=== PATIENT | female | born 1945 | race Caucasian/White ===

== ENCOUNTER 2017-01-24 14:44 | Observation (INO) | payer MEDICARE, OTHER ==
[2017-01-24 15:26] LABS: Hematocrit 36.1 % (37.0-47.0); Hemoglobin 12.4 gm/dL (12.5-16.0); Mean Cell Volume 90.7 fl (78-100); Mean Corpuscular Hemoglobin 31.2 pg (27-31); Mean Corpuscular Hgb Conc 34.3 g/dl (32-36); Mean Platelet Volume 9.8 fl (6.0-9.5); Neutrophil # 5.2 K/mm3 (1.3-6.0); Neutrophil % 67.8 % (42-75.0); Platelet Count 273 K/mm3 (150-450); Red Blood Count 3.98 M/mm3 (4.2-5.4); Red Cell Distribution Width 12.4 % (11.5-14.0); White Blood Count 7.6 K/mm3 (4.0-10.5)
[2017-01-24 15:40] LABS: Prothrombin Time (Patient) 9.9 Seconds (9.0-11.0)
[2017-01-24 15:42] LABS: INR 0.99 INR (0.90-1.10)
[2017-01-24] MEDS ORDERED: LORazepam 2 MG/ML DISP.SYRIN IV ONE (16:31)
[2017-01-24] MEDS ORDERED: ONDANSETRON HCL/PF 2 MG/ML VIAL IV ONE (16:31)
[2017-01-24] MEDS ORDERED: ONDANSETRON HCL/PF 2 MG/ML VIAL ONE (16:32)
[2017-01-24] MEDS ORDERED: LORazepam 2 MG/ML DISP.SYRIN ONE (16:32)
[2017-01-24] MEDS ORDERED: MORPHINE SULFATE 4 MG/ML SYRG IV ONE (17:00)
[2017-01-24] MEDS ORDERED: MORPHINE SULFATE 4 MG/ML SYRG ONE (17:05)
[2017-01-24] MEDS ORDERED: NORMAL SALINE 1,000 ML IV ONE (17:10)
--- NOTE | 2017-01-24 17:18 | ERNOTE ---
Lower Extremity HPI - Narrative Date of Service: 01/24/17 - General Lower Extremities Pain: thigh: right Time Seen by Provider: 01/24/17 14:59 Source: patient Exam Limitations: no limitations - Immun/Allergies/Home Medications Allergies/Adverse Reactions: Allergies Allergy/AdvReac Type Severity Reaction Status Date / Time No Known Allergies Allergy Unverified 01/24/17 14:56 Home Medications: HOME MEDICATIONS ALPRAZolam [Xanax] 0.5 tab PO Q8H 01/24/17 [Last Taken Unknown] Ascorbic Acid [Vitamin C] 1,000 mg PO DAILY 01/24/17 [Last Taken Unknown] Calcium Carbonate [Calcium] 500 mg PO DAILY 01/24/17 [Last Taken Unknown] Cholecalciferol (Vitamin D3) [Vitamin D] 2,000 unit PO DAILY 01/24/17 [Last Taken Unknown] Escitalopram Oxalate [Lexapro] 5 mg PO DAILY 01/24/17 [Last Taken Unknown] Multivitamin [One Daily Multivitamin] 1 each PO DAILY 01/24/17 [Last Taken Unknown] - History of Present Illness Narrative: Patient presents to the ED for a right thigh injury. She tripped down the basement staires and had a direct blow to the right thigh with a container she was carrying. No acute N/T/W. not on blood thinners. has not seen anyone else for this. Pain can be severe. Right thigh. No other injuries. No head injury. no neck or back pain. Pain worse with movement. Occurred: just prior to arrival Location of Incident: home Method of Injury: Reports: fell, direct blow Reason for Fall: Reports: tripped Loss of Consciousness: Reports: no loss of consciousness Modifying Factors - (Improves): Reports: rest Modifying Factors - (Worsens): Reports: movement Associated Symptoms: Denies: weakness, chest pain Other Injuries: Reports: none Subsequent Symptoms: Denies: sensory loss, numbness, motor loss Prior Treament: Denies: recently seen Review of Systems - Review of Systems Constitutional: Absent: fever Respiratory: Absent: shortness of breath Cardiology: Absent: chest pain Gastrointestinal/Abdominal: Present: nausea. Absent: abdominal pain Genitourinary: Absent: dysuria All Other Systems: All systems neg except as marked - Patient's Past Medical History Patient History - Medical: Depression Patient History - Cardiac/Respiratory: No pertinent hx Patient History - Cancer: No Hx of Cancer Patient History - Other: None - Social History Living Situations: home Abuse History: No History of abuse Psych History: Hx of Anxiety, Hx of Depression Alcohol Use: none Drug Use: none Physical Exam - Physical Exam General Appearance: Present: alert, anxious Head Exam: Present: normal inspection, no evidence of injury Eye Exam: Normal inspection: bilateral, PERRL: bilateral Ears, Nose, Throat: Present: normal ENT inspection Neck: Present: normal inspection, nontender. Absent: tender posterior midline Respiratory: Present: no respiratory distress, normal breath sounds, no accessory muscle use, lungs clear Cardiovascular/Chest: Present: regular rate, rhythm, normal peripheral pulses Gastrointestinal/Abdominal: Present: normal bowel sounds, nontender, nondistended, soft Back Exam: Present: no vertebral tenderness Extremity Exam: Present: other - swelling and bruising medial right thigh with skin color changes. The right thigh is 44.5cm, left thigh 38.5cm. The whole anterior compartemtn is swollen. There is a tight compartment medially but even the lateral anterior compartment is more firn than the left anterior thigh. Strong DP pulses. Neurological Exam: Present: alert, no motor/sensory deficits, other - anxious Skin Exam: Present: normal color, warm/dry, other - no laceration ED Progress - Results and Orders Patient's Lab Results:: I have reviewed the patient's lab results. - Vital Signs Patient's Vital Signs:: I have reviewed the patient's vital signs. Vital Signs: Vital Signs 01/24/17 01/24/17 01/24/17 14:50 16:00 16:35 Temperature 36.3 C L 36.4 C L Pulse Rate 86 74 90 Respiratory 12 14 16 Rate Blood Pressure 102/63 118/80 124/70 O2 Sat by Pulse 96 97 97 Oximetry - X-Ray X-Ray #1 X-Ray: femur Interpretation: Interp. by me X-ray Comments: I reviewed official radiology report - Progress/Reassessment Chief Complaint: Lower Extremity Pain/ Injury Progress Note-Subjective: 01/24/17 17:15 I spoke with Giovany Estrada from [facility]. He saw the patient in the ED and felt that the patient required compartment pressure measurement. By report however there is no [place] needle in the hospital for compartment pressure management. Given this Orthopedics recommends transfer to another facility from the ER. patient did have increased pain and vomited. I did provide IV fluids and anxiolysis. Clinically still good pulses and no neuro/vascular deficits. Unfortunately she cannot undergo the recommended diagnostic procedure here so Orthopedics recommends transfer. i spoke with Dr Ross and Dr Lee at [facility] and the patient can be transferred there for compartment pressure measurement. pt agreeable. Departure Clinical Impression: Fall, Thigh hematoma - Departure Disposition: [facility] Condition: Stable Referrals: Mckenna Larose MD [Primary Care Provider] -
--- NOTE | 2017-01-24 22:00 | HP ---
Chief Complaint - Chief Complaint Date of Service: 01/24/17 Time of Service: 21:57 Chief Complaint: " Fall, Swelling on RT thigh". Source of HPI- Pt; reliable, ERP notes. History of Present Illness: Ms. Liriano is a 71yr-old WF pt of Dr. Mckenna Larose with no pertinent medical history. Pt states that she missed a step going down the basement stairs and she tripped on the barrel she was carrying. The object had a direct blow to her RT inner thigh. She had severe pain, increasing swelling and bruising. By the time she arrived to the ED, the swelling had gotten much worse and the area felt hardened.There was no loss of consciousness with the fall and she denies her head hitting any surface or objects. At the ED, the Femur X-ray did not show any fractures. Due to the significance of swelling and location, ERP was concerned about compartment syndrome. Ortho was consulted and PA on-call recommended compartment syndrome measurement. However, it was determined that the apparatus needed to do so is not available at this facility. Arrangements were made for pt to be transferred to the [facility]. It appears that the case was discussed with our Surgeon- Dr. Guzman,who felt that Compartment Syndrome was highly unlikely given the circumstance of the injury. Decision was made to admit pt under observation due to likelihood of shanks- Amanda Injury and she will be evaluated by surgery tomorrow. - Patient's Past Medical History Patient History - Medical: Depression Patient History - Cardiac/Respiratory: No pertinent hx Patient History - Cancer: No Hx of Cancer Patient History - Surgical Procedures: No surgical history Patient History - Other: None - Family History Mother Family History - Medical: Family History - Cardiac/Respiratory: CVA/Stroke Family History - Cancer: No pertinent family hx Sister Family History - Medical: No pertinent hx Family History - Cardiac/Respiratory: No pertinent hx Family History - Cancer: Breast Father Family History - Medical: , No pertinent hx Family History - Cardiac/Respiratory: No pertinent hx Family History - Cancer: No pertinent family hx - Social History Living Situations: alone Abuse History: No History of abuse Psych History: Hx of Anxiety, Hx of Depression Smoking Status: Never smoker Have you smoked in the past 12 months: No Do you dip or chew tobacco: No Alcohol Use: none Drug Use: none Review Of Systems (GEN) - Review of Systems Generalized/Overall Review: Absent: Weakness, Chills, Fever, Malaise EENTM: Absent: Eye Pain, Blurred Vision, Tearing Respiratory: Absent: Cough, Shortness of Breath, Orthopnea Cardiac: Absent: Chest Pain, Edema, Palpitations Abdominal: Absent: Nausea, Vomiting, Hematemesis Genitourinary: Absent: Burning, Itching, Urgency Musculoskeletal: Present: Joint Pain, Joint Swelling - RT thigh. Absent: Back Pain Neurological: Absent: Headache, Depressed, Tremors, Weakness Skin: Absent: Dryness, Lesions, Lumps Endocrine: Absent: Intolerance to Cold, Flushing, Increased Thirst Misc: All systems neg except as marked Allergies/Adverse Reactions: Allergies Allergy/AdvReac Type Severity Reaction Status Date / Time No Known Allergies Allergy Unverified 01/24/17 14:56 Home Medications: HOME MEDICATIONS ALPRAZolam [Xanax] 0.5 tab PO Q8H 01/24/17 [Last Taken Unknown] Ascorbic Acid [Vitamin C] 1,000 mg PO DAILY 01/24/17 [Last Taken Unknown] Calcium Carbonate [Calcium] 500 mg PO DAILY 01/24/17 [Last Taken Unknown] Cholecalciferol (Vitamin D3) [Vitamin D] 2,000 unit PO DAILY 01/24/17 [Last Taken Unknown] Escitalopram Oxalate [Lexapro] 5 mg PO DAILY 01/24/17 [Last Taken Unknown] Multivitamin [One Daily Multivitamin] 1 each PO DAILY 01/24/17 [Last Taken Unknown] Exam - Exam Vital Signs: Vital Signs - Last Taken Temp 36.9 C 01/24/17 18:34 Pulse 63 01/24/17 18:34 Resp 16 01/24/17 18:34 BP 136/43 01/24/17 18:34 Pulse Ox 100 01/24/17 18:34 Constitutional: Present: Alert, Oriented x3, Cooperative, No distress ENT Exam: Present: normal ENT inspection Eye Exam: bilateral eye: normal inspection, PERRL Neck: Present: non-tender, full range of motion, supple Back Exam: Present: normal inspection, no CVA tenderness Respiratory: Present: chest non-tender, lungs clear, No rales, No wheezing Cardiovascular/Chest: Present: normal peripheral pulses, regular rate, rhythm, no chest tenderness Abdomen: Present: Normal bowel sounds, soft, nontender /Rectal: Present: Exam deferred Extremity: Present: normal range of motion, swelling - RT inner thigh with bruising. Skin Exam: Present: warm/dry, no cyanosis Lymphatic: Present: no adenopathy Neurologic: Present: alert, normal mood/affect, oriented x 3 Appearance: Present: appropriate appearance, appropriate insight Eye contact: Present: cooperative, good eye contact, normal speech Thoughts: Present: normal thought pattern, no apparent hallucination Diagnostic Studies: Laboratory Results WBC 7.6 K/mm3 (4.0-10.5) 01/24/17 15:25 RBC 3.98 M/mm3 (4.2-5.4) L 01/24/17 15:25 Hgb 12.4 gm/dL (12.5-16.0) L 01/24/17 15:25 Hct 36.1 % (37.0-47.0) L 01/24/17 15:25 MCV 90.7 fl (78-100) 01/24/17 15:25 MCH 31.2 pg (27-31) H 01/24/17 15:25 MCHC 34.3 g/dl (32-36) 01/24/17 15:25 RDW 12.4 % (11.5-14.0) 01/24/17 15:25 Plt Count 273 K/mm3 (150-450) 01/24/17 15:25 MPV 9.8 fl (6.0-9.5) H 01/24/17 15:25 Immature Gran % (Auto) 0.40 % (0.001-0.429) 01/24/17 15:25 Immature Gran # (Auto) 0.03 K/mm3 (0.000-0.0310) 01/24/17 15:25 Neutrophils % 67.8 % (42-75.0) 01/24/17 15:25 Lymphocytes % 23.2 % (20-51) 01/24/17 15:25 Monocytes % 8.0 % (0.0-9) 01/24/17 15:25 Eosinophils % 0.3 % (0.0-3.0) 01/24/17 15:25 Basophils % 0.3 % (0.0-1.0) 01/24/17 15:25 Nucleated RBC % 0.0 k/mm3 (0-1) 01/24/17 15:25 Neutrophils # 5.2 K/mm3 (1.3-6.0) 01/24/17 15:25 Lymphocytes # 1.8 k/mm3 (1.5-3.5) 01/24/17 15:25 Monocytes # 0.6 k/mm3 (0.0-1.0) 01/24/17 15:25 Eosinophils # 0.0 k/mm3 (0.0-0.7) 01/24/17 15:25 Absolute Basophils 0.0 k/mm3 (0.0-0.1) 01/24/17 15:25 PT 9.9 Seconds (9.0-11.0) 01/24/17 15:25 INR (Anticoag Therapy) 0.99 INR (0.90-1.10) 01/24/17 15:25 Assessment/Plan - Assessment/Plan (1) Thigh hematoma Assessment: As discussed in the HPI- Pt sustained a fall which caused soft tissues swelling with hematoma on RT inner thigh, however, there was no fracture. During physical examination, pt notes that the swelling has reduced since presentation to the ED. Compartment syndrome is unlikely at this time but pt will be observed for Shanks- Niyah injury and will be evaluated by the surgeon for now. Will provide supportive care with pain mgt Monitor CBC in am. Problem: Acute (2) Fall Problem: Acute
[2017-01-24] MEDS: ALPRAZolam 0.5 MG TABLET PO SCH (22:31)
[2017-01-24 22:34] LABS: Anion Gap 18.4 mmol/L (6.8-13.8); BUN/Creatinine Ratio 18.8 (9.0-21.6); Calcium * 9.5 mg/dL (7.9-10.9); Estimated Creat Clear 49.5; Potassium 3.4 mmol/L (3.4-4.6)
[2017-01-25 05:40] LABS: Hematocrit 32.1 % (37.0-47.0); Hemoglobin 10.6 gm/dL (12.5-16.0); Mean Cell Volume 93.6 fl (78-100); Mean Corpuscular Hemoglobin 30.9 pg (27-31); Mean Platelet Volume 10.1 fl (6.0-9.5); Neutrophil # 6.1 K/mm3 (1.3-6.0); Neutrophil % 68.9 % (42-75.0); Platelet Count 207 K/mm3 (150-450); Red Blood Count 3.43 M/mm3 (4.2-5.4); Red Cell Distribution Width 12.7 % (11.5-14.0); White Blood Count 8.9 K/mm3 (4.0-10.5)
[2017-01-25] MEDS: ALPRAZolam 0.5 MG TABLET PO SCH (05:50)
[2017-01-25] MEDS ORDERED: ESCITALOPRAM OXALATE 10 MG TAB PO SCH (09:00)
[2017-01-25] MEDS ORDERED: CALCIUM CARBONATE 500 MG TAB.CHEW PO SCH (09:00)
[2017-01-25] MEDS ORDERED: MULTIVITAMINS 1 CAP CAPSULE PO SCH (09:00)
[2017-01-25] MEDS ORDERED: CHOLECALCIFEROL 1,000 UNIT CAPSULE PO SCH (09:00)
[2017-01-25] MEDS ORDERED: ASCORBIC ACID 500 MG TABLET PO SCH (09:00)
[2017-01-25 10:39] VITALS: BP 120/54
--- NOTE | 2017-01-25 12:11 | CONS ---
[facility] - General Date of Service: 01/25/17 Narrative: Asked to see this pleasant 71 yo white female. She sustained a soft tissue injury to the right medial mid-thigh. She kicked a recycling bin into an object that rebounded and hit her in the thigh and then she fell on the bin in the same area. She was seen in the emergency room. There was no fracture. There was cause for concern for a compartment syndrome as she had developed a large tense and painful hematoma. Ortho consultation recommended a transfer. I was contacted and accepted the patient for admission through the hospitalist service for pain management and observation for a Kam-Amanda injury. Overnight she has had a significant diminution of the tenseness and is now virtually pain free. Source: patient, RN/MD, old records Exam Limitations: no limitations - History of Present Illness Allergies/Adverse Reactions: Allergies No Known Allergies Allergy (Unverified 01/24/17 14:56) Home Medications: Home Medications Medication Instructions Recorded Last Taken ALPRAZolam [Xanax] 0.5 tab PO Q8H 01/24/17 Unknown Ascorbic Acid [Vitamin C] 1,000 mg PO DAILY 01/24/17 Unknown Calcium Carbonate [Calcium] 500 mg PO DAILY 01/24/17 Unknown Cholecalciferol (Vitamin D3) 2,000 unit PO DAILY 01/24/17 Unknown [Vitamin D] Escitalopram Oxalate [Lexapro] 5 mg PO DAILY 01/24/17 Unknown Multivitamin [One Daily 1 each PO DAILY 01/24/17 Unknown Multivitamin] - Patient's Past Medical History Patient History - Medical: Depression Patient History - Cardiac/Respiratory: No pertinent hx Patient History - Cancer: No Hx of Cancer Patient History - Surgical Procedures: No surgical history Patient History - Other: None - Family History Mother Family History - Medical: Family History - Cardiac/Respiratory: CVA/Stroke Family History - Cancer: No pertinent family hx Sister Family History - Medical: No pertinent hx Family History - Cardiac/Respiratory: No pertinent hx Family History - Cancer: Breast Father Family History - Medical: , No pertinent hx Family History - Cardiac/Respiratory: No pertinent hx Family History - Cancer: No pertinent family hx - Social History Living Situations: alone Abuse History: No History of abuse Psych History: Hx of Anxiety, Hx of Depression Smoking Status: Never smoker Have you smoked in the past 12 months: No Do you dip or chew tobacco: No Alcohol Use: none Drug Use: none Procedures APPLICATION OF SPLINT (02/12/05) COLONOSCOPY (04/13/10) INT FIXATION-RADIUS/ULNA (02/13/05) Medications - Medications Current Medications: Current Medications Alprazolam (Xanax) 0.25 mg PO Q8H ANGELES Stop: 02/23/17 22:01 Last Admin: 01/25/17 05:50 Dose: 0.25 mg Ascorbic Acid (Vitamin C) 1,000 mg PO DAILY ANGELES Stop: 02/24/17 09:01 Last Admin: 01/25/17 08:25 Dose: 1,000 mg Calcium Carbonate/Glycine (Tums) 500 mg PO DAILY ANGELES Stop: 02/24/17 09:01 Last Admin: 01/25/17 08:26 Dose: Not Given Cholecalciferol (Vitamin D) 2,000 unit PO DAILY ANGELES Stop: 02/24/17 09:01 Last Admin: 01/25/17 08:25 Dose: 2,000 unit Escitalopram Oxalate (Lexapro) 5 mg PO DAILY ANGELES Stop: 02/24/17 09:01 Last Admin: 01/25/17 08:25 Dose: 5 mg Physical Examination - Exam Vital Signs: Vital Signs - Last Taken Temp 36.8 C 01/25/17 10:38 Pulse 67 01/25/17 10:38 Resp 20 01/25/17 10:38 BP 120/54 01/25/17 10:38 Pulse Ox 97 01/25/17 10:38 O2 Oxygen Delivery Method Room Air Constitutional: Present: Alert, Oriented x3, Cooperative, Well developed, Well nourished, No distress ENT Exam: Present: normal ENT inspection Neck: Present: full range of motion, supple, normal inspection Respiratory: Present: no respiratory distress, no accessory muscle use Peripheral Pulses: dorsalis-pedis (R): 3+ - Posterior tib 3+ Extremity: Present: other - 14x8 hematoma right medial mid-thigh with ecchymosis extending far beyond. Overlying skin is supple, is NOT tense, is NOT threatened. Non-tender to palpation. CMS intact distally. Capillary refill of right foot is normal. Neurologic: Present: no motor/sensory deficits Appearance: Present: appropriate appearance, appropriate insight, no memory impairment Eye contact: Present: cooperative, good eye contact, normal speech Thoughts: Present: normal thought pattern - Results and Findings: Lab/Microbiology results last 24 hrs: Abnormal/Pending Laboratory Last 24 HRS 01/25/17 05:34 RBC 3.43 L Hgb 10.6 L Hct 32.1 L MPV 10.1 H Lymphocytes % 18.7 L Monocytes % 11.0 H Neutrophils # 6.1 H - Assessments/Findings (1) Kam Amanda lesion Diagnosis(s): This Kam-Amanda injury is likely to resolve of its own accord without intervention. I have a low concern of this compromising the overlying skin. Will monitor this closely. She is good for discharge. I will have her follow-up with me on Friday in the office. Problem: Acute
[2017-01-25] MEDS ORDERED: POTASSIUM CHLORIDE 20 MEQ TABLET.SA PO ONE (12:36)
--- NOTE | 2017-01-25 12:40 | DS ---
(1) Thigh hematoma Diagnosis(s): RIGHT Problem: Acute (2) Fall Diagnosis(s): RT inner thigh with extensive eccchymosis. Problem: Acute (3) Anxiety and depression Problem: Chronic (4) Blood loss anemia Diagnosis(s): due to hematoma Problem: Acute Description of Stay: DATE OF ADMISSION: 01/24/17. DATE OF DISCHARGE: 01/25/17. DIAGNOSTICS: NONE. DISCHARGE SUMMARY: Kaylee Liriano is a 71-year-old WF with a history of anxiety and depression who fell down the basement stairs and a recycling bin hit her inner thigh. She had marked swelling, bruising and severe pain w/o LOC/head injury. X-ray of femur was negative. Differential diagnoses included Compartment syndrome/ Morelle Freddy injury/large hematoma. Instrument for measuring compartment syndrome not available at this facility. Orthopedic surgeon/general surgeon were contacted. There was a drop in H&H from 12.4/36.1[01/24/17] to 10.6/32.1[01/25/17] and the patient was hemodynamically stable w/o chest pain/SOB. Pain had significantly subsided the next day and the patient was able to ambulate to the bathroom etc. She felt she did not need any pain medication. Dr. Guzman was consulted for the same who felt she could go home and follow up on an outpatient basis on 01/27 or 01/29. Procedures Performed: none Results and Findings: Laboratory Tests 01/24/17 01/25/17 15:25 05:34 WBC 7.6 8.9 Hgb 12.4 L 10.6 L Hct 36.1 L 32.1 L Plt Count 273 207 01/24/17 15:25 Plasma Sodium 141 Potassium 3.4 D Chloride 102 Carbon Dioxide 23.0 L BUN 16 Creatinine 0.85 Est GFR (Non-Af Amer) 70 D Random Glucose 143 H Calcium 9.5 X-ray of femur: 01/24/2017: 1. Soft tissue swelling along the medial aspect of the mid thigh. DJD of the right hip and medial compartment of the right knee noted. No definable acute fracture. Discharge Disposition: Home self care Disposition: Home self-care Condition: Undetermined Discharge Activity: Activity as tolerated Discharge Diet: Low fat/chol, High Fiber Referrals: cMkenna Larose MD [Primary Care Provider] - Problem Oriented Discharge Instructions to Patient/Family: Fall Prevention in the Home, [id number], Contusion, [id number] Additional Patient Instructions (free text): Follow-up with Dr. Cordero on 01/27 or 01/29 . Follow up with PCP in 1 month. Fall precautions. [facility] will call you on Friday with follow up appointments. Complete Home Medications List: Complete Home Medication List: ALPRAZolam [Xanax] 0.5 tab PO Q8H 01/24/17 Ascorbic Acid [Vitamin C] 1,000 mg PO DAILY 01/24/17 Calcium Carbonate [Calcium] 500 mg PO DAILY 01/24/17 Cholecalciferol (Vitamin D3) [Vitamin D3] 2,000 unit PO DAILY 01/24/17 Escitalopram Oxalate [Lexapro] 5 mg PO DAILY 01/24/17 Multivitamin [One Daily Multivitamin] 1 each PO DAILY 01/24/17
== END 2017-01-25 13:27 | disposition home or self-care (01) ==
LOC: ER 14:44 → MS 18:32
PROVIDERS: ADMIT Internal Medicine; ATTEND Internal Medicine
DX: S70.11XA Contusion of right thigh, initial encounter (principal); Y92.009 Unspecified place in unspecified non-institutional (private) residence as the place of occurrence of the external cause; W10.9XXA Fall (on) (from) unspecified stairs and steps, initial encounter; M16.11 Unilateral primary osteoarthritis, right hip
CPT/HCPCS: 36415; 73552; 80048; 85025; 85610; 96374; 96375; 99285; G0378; J2405